=== PATIENT | female | born 1960 | race Two or more races ===

== ENCOUNTER → 2019-07-29 | Outpatient (CLI) | payer OTHER ==
[~2019-07-29] VITALS: Ht 165.1 cm; Wt 64.9 kg
[~2019-07-29] MED LIST: LIPO-FLAVONOID1 EACH PO
== END | disposition home or self-care (01) ==
LOC: OFIC 805 11:40
DX: H90.3 Sensorineural hearing loss, bilateral (principal); R42 Dizziness and giddiness; H61.23 Impacted cerumen, bilateral

== ENCOUNTER → 2021-01-26 15:00 | Outpatient (CLI) | payer OTHER | END | disposition home or self-care (01) | LOC: PPH VACUNA 15:00 | DX: Z23 Encounter for immunization (principal) ==